=== PATIENT | female | born 1940 | race Two or more races ===

== ENCOUNTER 2023-07-08 18:38 | Inpatient (IN) | payer MEDICARE, OTHER ==
[~2023-07-08] VITALS: Ht 167.6 cm; Wt 62.0 kg
[2023-07-08] MEDS ORDERED: SODIUM CHLORIDE 0.9% 1,000 ML IV ONE ×2 (19:15)
[2023-07-08 19:38] VITALS: PULSE 62; RESP 15; O2SAT 100
[2023-07-08 19:46] LABS: Basophils # (auto) 0 10 ^3/uL (0-0.2); Red Cell Distribution Width 14.8 % (11.8-14.3)
[2023-07-08 19:48] LABS: Basophils % (auto) 0.6 % (0.0-2.0); Eosinophils # (auto) 0 10 ^3/uL (0-0.8); Eosinophils % (auto) 0.5 % (0.0-7.0); Hematocrit 19.5 % (36.0-46.0); Lymphocytes # (auto) 2.1 10 ^3/uL (0.4-5.4); Mean Corpuscular Hemoglobin 32.2 pg (28.0-32.0); Mean Corpuscular Volume 94.9 fL (80.0-100.0); Monocytes # (auto) 0.4 10 ^3/uL (0-1.3); Monocytes % (auto) 5.9 % (0.0-12.0); Neutrophils # (auto) 4.9 10 ^3/uL (1.6-8.6); Nucleated Red Blood Cells % 0.1 %; Red Blood Cells 2.06 10^6/uL (4.0-5.20); White Blood Cell 7.5 10^3/uL (4.4-10.8)
[2023-07-08 20:03] LABS: Alanine Aminotransferase 18 U/L (7-40); Albumin 3.8 g/dL (3.2-4.8); Alkaline Phosphatase 51 U/L (46-116); Anion Gap 11 (5-15); Aspartate Aminotransferase 10 U/L (13-40); BUN/Creatinine Ratio 17.1 (10.0-20.0); Blood Urea Nitrogen 24 mg/dL (9-23); Calcium 9.3 mg/dL (8.7-10.4); Carbon Dioxide 24 mmol/L (20-30); Chloride 104 mmol/L (98-107); Glucose 232 mg/dL (74-106); Lipase 58 U/L (12-53); Potassium 4.2 mmol/L (3.5-5.1); Sodium 139 mmol/L (136-145)
[2023-07-08 20:04] LABS: Bilirubin, Total 0.4 mg/dL (0.2-1.0); Total Protein 6.1 g/dL (5.7-8.2)
[2023-07-08 20:05] LABS: Hemoglobin 6.6 g/dL (12.2-16.2)
[2023-07-08 20:46] LABS: % Iron Saturation 18.5 % (15-50)
[2023-07-08 20:54] LABS: Ferritin 34.3 ng/mL (10-291)
[2023-07-08 20:58] LABS: INR 1.18 (0.9-1.15); Prothrombin Time 12.3 sec (9.3-11.8)
[2023-07-09] VITALS (20 sets, daily range): BP systolic 90–172; BP diastolic 39–83; PULSE 65–89; RESP 14–20; TEMP 97–98.9; O2SAT 92–100
[2023-07-09] MEDS ORDERED: HYDROcodone-ACET 5/325MG TAB PO PRN (01:00)
[2023-07-09] MEDS ORDERED: ONDANSETRON HCL 4 MG/2 ML VIAL IV PRN (01:00)
[2023-07-09] MEDS ORDERED: DEXTROSE (50%) 50ML SYRG IV PRN (01:00)
[2023-07-09] MEDS ORDERED: ACETAMINOPHEN 325 MG TAB PO PRN (01:00)
[2023-07-09] MEDS ORDERED: DOCUSATE SOD 100 MG CAP PO PRN (01:00)
[2023-07-09] MEDS ORDERED: MORPHINE SULFATE INJ 2 MG/ml SYRG IV PRN (02:00)
[2023-07-09] MEDS ORDERED: NITROGLYCERIN 0.4 MG SL TAB SL PRN (02:00)
[2023-07-09] MEDS: SODIUM CHLOR 0.9% PF (SALINE LOCK) 10ML VIAL/SYR IV SCH ×3 (05:43→22:09)
[2023-07-09] MEDS: ACCU-CHEK COMFORT CURVE STRIP VI SCH ×4 (06:34→22:09)
[2023-07-09] MEDS: InsuLIN REG 1unit/0.01ml Soln (100units/ml) SC SCH ×4 (06:35→22:00)
[2023-07-09] MEDS ORDERED: ASPirin 81 mg TAB PO SCH (10:00)
[2023-07-09] MEDS: FAMOTIDINE (10MG/ML) 2ML VL IV SCH ×2 (11:05→22:15)
[2023-07-09] MEDS ORDERED: FAMO-12 PO (11:06)
[2023-07-09] MEDS ORDERED: CLOP75TA70 PO (11:06)
[2023-07-09] MEDS ORDERED: APIX5TAB PO (11:06)
[2023-07-09] MEDS ORDERED: CILO100T PO (11:06)
[2023-07-09] MEDS ORDERED: CHOL200021 PO (11:06)
[2023-07-09] MEDS ORDERED: QUET100T47 PO (11:06)
[2023-07-09] MEDS ORDERED: RIVA1DIS TD (11:06)
[2023-07-09] MEDS ORDERED: ASPI-543 PO (11:06)
[2023-07-09] MEDS ORDERED: CAND4TAB OR (11:06)
[2023-07-09] MEDS ORDERED: LATA0.008 RIGHTEYE (11:06)
[2023-07-09] MEDS ORDERED: METO25TA93 PO (11:06)
[2023-07-09] MEDS ORDERED: ESCI1TAB36 PO (11:06)
[2023-07-09] MEDS ORDERED: ATOR20TA50 PO (11:06)
[2023-07-09] MEDS ORDERED: MEMA1TAB3 PO (11:06)
[2023-07-09 13:44] LABS: Basophils # (auto) 0 10 ^3/uL (0-0.2); Basophils % (auto) 0.3 % (0.0-2.0); Eosinophils # (auto) 0 10 ^3/uL (0-0.8); Eosinophils % (auto) 0.4 % (0.0-7.0); Hematocrit 31.8 % (36.0-46.0); Hemoglobin 10.5 g/dL (12.2-16.2); Lymphocytes # (auto) 1.7 10 ^3/uL (0.4-5.4); Lymphocytes % (auto) 15.5 % (10.0-50.0); Mean Corpuscular Hemoglobin 30.5 pg (28.0-32.0); Mean Corpuscular Hgb Conc. 33.1 g/dL (32.0-36.0); Mean Corpuscular Volume 92.2 fL (80.0-100.0); Monocytes # (auto) 0.6 10 ^3/uL (0-1.3); Monocytes % (auto) 5.4 % (0.0-12.0); Neutrophils # (auto) 8.3 10 ^3/uL (1.6-8.6); Neutrophils % (auto) 78.4 % (37.0-80.0); Nucleated Red Blood Cells % 0.1 %; Red Blood Cells 3.45 10^6/uL (4.0-5.20); Red Cell Distribution Width 15.4 % (11.8-14.3); White Blood Cell 10.6 10^3/uL (4.4-10.8)
[2023-07-09 13:52] LABS: Alanine Aminotransferase 14 U/L (7-40); Albumin 3.8 g/dL (3.2-4.8); Alkaline Phosphatase 53 U/L (46-116); Anion Gap 6 (5-15); Aspartate Aminotransferase 10 U/L (13-40); BUN/Creatinine Ratio 13.3 (10.0-20.0); Blood Urea Nitrogen 14 mg/dL (9-23); Calcium 9.2 mg/dL (8.7-10.4); Carbon Dioxide 26 mmol/L (20-30); Chloride 107 mmol/L (98-107); Glucose 143 mg/dL (74-106); Potassium 4.4 mmol/L (3.5-5.1); Sodium 139 mmol/L (136-145)
[2023-07-09 13:53] LABS: Bilirubin, Total 0.7 mg/dL (0.2-1.0); Total Protein 6.3 g/dL (5.7-8.2)
[2023-07-10] MEDS: SODIUM CHLOR 0.9% PF (SALINE LOCK) 10ML VIAL/SYR IV SCH ×3 (06:24→21:50)
[2023-07-10] MEDS: ACCU-CHEK COMFORT CURVE STRIP VI SCH ×4 (06:25→21:48)
[2023-07-10] MEDS: InsuLIN REG 1unit/0.01ml Soln (100units/ml) SC SCH ×4 (06:25→21:48)
[2023-07-10 08:00] VITALS: PULSE 77; RESP 18; O2SAT 95
[2023-07-10 09:00] VITALS: BP 132/63; PULSE 77; RESP 18; TEMP 98; O2SAT 95
[2023-07-10] MEDS ORDERED: OMNIPAQUE 12mg/ml 500ml ORAL SOLUTION PO ONE (09:55)
[2023-07-10] MEDS: FAMOTIDINE (10MG/ML) 2ML VL IV SCH ×2 (10:06→21:50)
[2023-07-10 10:46] LABS: Basophils # (auto) 0.1 10 ^3/uL (0-0.2); Basophils % (auto) 0.6 % (0.0-2.0); Eosinophils # (auto) 0.1 10 ^3/uL (0-0.8); Eosinophils % (auto) 1.1 % (0.0-7.0); Hematocrit 35.1 % (36.0-46.0); Hemoglobin 11.6 g/dL (12.2-16.2); Lymphocytes # (auto) 1.9 10 ^3/uL (0.4-5.4); Lymphocytes % (auto) 20.7 % (10.0-50.0); Mean Corpuscular Hemoglobin 30.7 pg (28.0-32.0); Mean Corpuscular Hgb Conc. 33.1 g/dL (32.0-36.0); Mean Corpuscular Volume 92.8 fL (80.0-100.0); Monocytes # (auto) 0.9 10 ^3/uL (0-1.3); Monocytes % (auto) 9.9 % (0.0-12.0); Neutrophils # (auto) 6.2 10 ^3/uL (1.6-8.6); Neutrophils % (auto) 67.7 % (37.0-80.0); Nucleated Red Blood Cells % 0.2 %; Red Blood Cells 3.78 10^6/uL (4.0-5.20); Red Cell Distribution Width 15.5 % (11.8-14.3); White Blood Cell 9.1 10^3/uL (4.4-10.8)
[2023-07-10 11:44] LABS: Alanine Aminotransferase 18 U/L (7-40); Albumin 4.2 g/dL (3.2-4.8); Alkaline Phosphatase 63 U/L (46-116); Anion Gap 5 (5-15); Aspartate Aminotransferase 13 U/L (13-40); BUN/Creatinine Ratio 16.2 (10.0-20.0); Blood Urea Nitrogen 16 mg/dL (9-23); Calcium 9.5 mg/dL (8.7-10.4); Carbon Dioxide 28 mmol/L (20-30); Chloride 106 mmol/L (98-107); Glucose 105 mg/dL (74-106); Potassium 4.6 mmol/L (3.5-5.1); Sodium 139 mmol/L (136-145)
[2023-07-10 11:45] LABS: Bilirubin, Total 0.8 mg/dL (0.2-1.0); Total Protein 6.8 g/dL (5.7-8.2)
[2023-07-10] MEDS ORDERED: IOHEXOL 300 MG/ML 100ML BOTTLE IJ ONE (12:32)
[2023-07-10 13:21] VITALS: BP 96/74; PULSE 73; RESP 20; TEMP 97.8; O2SAT 95
[2023-07-10 17:00] VITALS: BP 147/69; PULSE 80; RESP 18; TEMP 98.6; O2SAT 95
[2023-07-10] MEDS: LATANOPROST 0.005 % OPTH(EYE) SOL 2.5ML RIGHTEYE SCH (17:47)
[2023-07-10] MEDS: QUEtiapine FUMARATE 100 MG TAB PO SCH (21:49)
[2023-07-10] MEDS: CILOSTAZOL 100 MG TAB PO SCH (21:49)
[2023-07-10] MEDS: MEMANTINE HCL 5 MG TAB PO SCH (21:49)
[2023-07-11 05:10] LABS: Basophils # (auto) 0.1 10 ^3/uL (0-0.2); Basophils % (auto) 0.8 % (0.0-2.0); Eosinophils # (auto) 0.1 10 ^3/uL (0-0.8); Eosinophils % (auto) 0.9 % (0.0-7.0); Hematocrit 30.5 % (36.0-46.0); Hemoglobin 10.3 g/dL (12.2-16.2); Lymphocytes # (auto) 1.3 10 ^3/uL (0.4-5.4); Lymphocytes % (auto) 19.7 % (10.0-50.0); Mean Corpuscular Hemoglobin 31.1 pg (28.0-32.0); Mean Corpuscular Hgb Conc. 33.8 g/dL (32.0-36.0); Monocytes # (auto) 0.7 10 ^3/uL (0-1.3); Monocytes % (auto) 10.6 % (0.0-12.0); Neutrophils # (auto) 4.7 10 ^3/uL (1.6-8.6); Red Blood Cells 3.31 10^6/uL (4.0-5.20); Red Cell Distribution Width 15.5 % (11.8-14.3); White Blood Cell 6.8 10^3/uL (4.4-10.8)
[2023-07-11] MEDS: InsuLIN REG 1unit/0.01ml Soln (100units/ml) SC SCH ×4 (06:11→22:00)
[2023-07-11] MEDS: ACCU-CHEK COMFORT CURVE STRIP VI SCH ×4 (06:12→22:00)
[2023-07-11] MEDS: SODIUM CHLOR 0.9% PF (SALINE LOCK) 10ML VIAL/SYR IV SCH ×3 (06:12→22:57)
[2023-07-11 08:00] VITALS: PULSE 77; RESP 18
[2023-07-11 09:00] VITALS: BP 144/57; PULSE 87; RESP 17; O2SAT 93
[2023-07-11] MEDS ORDERED: PATIENTS OWN MEDICATION (Metoprolol Succinate (Metoprolol Succinate Er) 12.5 MG) PO SCH (10:00)
[2023-07-11] MEDS: RIVASTIGMINE 4.6 MG TD SCH (10:00)
[2023-07-11] MEDS ORDERED: PATIENTS OWN MEDICATION (Escitalopram Oxalate 1 TAB) PO SCH (10:00)
[2023-07-11] MEDS ORDERED: PATIENTS OWN MEDICATION (Cholecalciferol (D3) 2,000 UNIT) PO SCH (10:00)
[2023-07-11] MEDS: CANDESARTAN CILEXETIL 4 MG PO SCH (10:00)
[2023-07-11] MEDS: MEMANTINE HCL 5 MG TAB PO SCH ×2 (10:08→22:54)
[2023-07-11] MEDS: CHOLECALCIFEROL (VITD3) 2,000 UNIT CAP/TAB PO SCH (10:08)
[2023-07-11] MEDS: FAMOTIDINE (10MG/ML) 2ML VL IV SCH ×2 (10:08→22:56)
[2023-07-11] MEDS: ATORVASTATIN 20 MG TAB PO SCH (10:09)
[2023-07-11] MEDS: CILOSTAZOL 100 MG TAB PO SCH ×2 (10:09→22:00)
[2023-07-11 11:57] LABS: Folate (Folic Acid) 16.38 ng/mL (>5.38)
[2023-07-11 13:00] VITALS: BP 143/69; PULSE 97; RESP 20; O2SAT 97
[2023-07-11 17:00] VITALS: BP 138/68; PULSE 107; RESP 18; O2SAT 96
[2023-07-11] MEDS: LATANOPROST 0.005 % OPTH(EYE) SOL 2.5ML RIGHTEYE SCH (17:56)
[2023-07-11 22:00] VITALS: BP 136/83; PULSE 105; RESP 18; TEMP 98; O2SAT 96
[2023-07-11] MEDS: QUEtiapine FUMARATE 100 MG TAB PO SCH (22:54)
[2023-07-12 05:00] VITALS: BP 130/70; PULSE 101; RESP 18; TEMP 97.9; O2SAT 97
[2023-07-12] MEDS: InsuLIN REG 1unit/0.01ml Soln (100units/ml) SC SCH ×3 (06:41→18:22)
[2023-07-12] MEDS: SODIUM CHLOR 0.9% PF (SALINE LOCK) 10ML VIAL/SYR IV SCH ×2 (06:41→13:59)
[2023-07-12] MEDS: ACCU-CHEK COMFORT CURVE STRIP VI SCH ×3 (06:42→18:21)
[2023-07-12 06:55] LABS: Basophils # (auto) 0.1 10 ^3/uL (0-0.2); Basophils % (auto) 0.9 % (0.0-2.0); Eosinophils # (auto) 0 10 ^3/uL (0-0.8); Eosinophils % (auto) 0.8 % (0.0-7.0); Hematocrit 28.9 % (36.0-46.0); Hemoglobin 9.7 g/dL (12.2-16.2); Lymphocytes # (auto) 1.2 10 ^3/uL (0.4-5.4); Lymphocytes % (auto) 19.1 % (10.0-50.0); Mean Corpuscular Hemoglobin 30.7 pg (28.0-32.0); Mean Corpuscular Hgb Conc. 33.7 g/dL (32.0-36.0); Mean Corpuscular Volume 90.9 fL (80.0-100.0); Monocytes # (auto) 0.8 10 ^3/uL (0-1.3); Monocytes % (auto) 12.4 % (0.0-12.0); Neutrophils # (auto) 4.3 10 ^3/uL (1.6-8.6); Neutrophils % (auto) 66.8 % (37.0-80.0); Nucleated Red Blood Cells % 0.2 %; Red Blood Cells 3.17 10^6/uL (4.0-5.20); Red Cell Distribution Width 15.6 % (11.8-14.3); White Blood Cell 6.5 10^3/uL (4.4-10.8)
[2023-07-12 08:00] VITALS: PULSE 77; RESP 18; O2SAT 92
[2023-07-12] MEDS: ATORVASTATIN 20 MG TAB PO SCH (09:44)
[2023-07-12] MEDS: MEMANTINE HCL 5 MG TAB PO SCH (09:44)
[2023-07-12] MEDS: CHOLECALCIFEROL (VITD3) 2,000 UNIT CAP/TAB PO SCH (09:44)
[2023-07-12] MEDS: METOPROLOL TARTRATE 25 MG TAB PO SCH ×2 (09:44→10:00)
[2023-07-12] MEDS: FAMOTIDINE (10MG/ML) 2ML VL IV SCH (09:44)
[2023-07-12] MEDS: CANDESARTAN CILEXETIL 4 MG PO SCH (09:46)
[2023-07-12] MEDS: RIVASTIGMINE 4.6 MG TD SCH (09:50)
[2023-07-12] MEDS: CILOSTAZOL 100 MG TAB PO SCH (10:00)
[2023-07-12] MEDS ORDERED: CITALOPRAM HYDROBR 20 MG TAB PO SCH (10:00)
[2023-07-12 16:17] LABS: COVID19 ANTIGEN SOFIA FIA NEGATIVE (NEGATIVE)
[2023-07-12 16:22] VITALS: BP 127/66; PULSE 90; RESP 18; TEMP 98.3; O2SAT 94
[2023-07-12] MEDS: LATANOPROST 0.005 % OPTH(EYE) SOL 2.5ML RIGHTEYE SCH (18:00)
[2023-07-13] MEDS ORDERED: RIVASTIGMINE 4.6 MG TD SCH (10:00)
== END 2023-07-12 18:38 | DRG 811 ==
LOC: ER 18:38 → EDBD 18:38 → TELE 07-09 01:54 → TELE-WESTW 07-09 08:43
PROVIDERS: ADMIT Nurse Practitioner Family; ATTEND Family Medicine
PROC: 30233N1 Transfusion of Nonautologous Red Blood Cells into Peripheral Vein, Percutaneous Approach (ICD-10-PCS; principal; 2023-07-09)
DX: D64.9 Anemia, unspecified (principal); G93.41 Metabolic encephalopathy; K92.2 Gastrointestinal hemorrhage, unspecified; N17.9 Acute kidney failure, unspecified; E11.22 Type 2 diabetes mellitus with diabetic chronic kidney disease; N18.9 Chronic kidney disease, unspecified; E11.65 Type 2 diabetes mellitus with hyperglycemia; Z20.822 Contact with and (suspected) exposure to COVID-19; I12.9 Hypertensive chronic kidney disease with stage 1 through stage 4 chronic kidney disease, or unspecified chronic kidney disease; E11.51 Type 2 diabetes mellitus with diabetic peripheral angiopathy without gangrene; E78.5 Hyperlipidemia, unspecified; R55 Syncope and collapse; F03.90 Unspecified dementia, unspecified severity, without behavioral disturbance, psychotic disturbance, mood disturbance, and anxiety; I25.10 Atherosclerotic heart disease of native coronary artery without angina pectoris; K21.9 Gastro-esophageal reflux disease without esophagitis; Z86.718 Personal history of other venous thrombosis and embolism; Z87.891 Personal history of nicotine dependence; Z88.0 Allergy status to penicillin; Z79.01 Long term (current) use of anticoagulants
CPT/HCPCS: 36415; 70450; 71045; 74176; 80053; 82728; 82746; 82962; 83540; 83550; 83690; 83735; 83880; 84484; 85025; 85045; 85384; 85610; 86850; 86900; 86901; 86920; 87081; 87426; 93005; 93925; 93970; 97163; G0378; J1815; J3490

== ENCOUNTER 2023-11-29 12:14 | Inpatient (IN) | payer BC, MEDICARE ==
[~2023-11-29] VITALS: Ht 157.5 cm; Wt 69.5 kg
[~2023-11-29 12:14] MED LIST: APIX5TAB PO; ASPI-543 PO; ATOR20TA50 PO; CAND4TAB OR; CHOL200021 PO; CILO100T PO; CLOP75TA70 PO; ESCI1TAB36 PO; FAMO-12 PO; LATA0.008 RIGHTEYE; MEMA1TAB3 PO; METO25TA93 PO; QUET100T47 PO; RIVA1DIS TD
[2023-11-29 12:39] VITALS: BP 179/59; PULSE 77; RESP 19; O2SAT 94
[2023-11-29 13:04] LABS: Basophils # (auto) 0 10 ^3/uL (0-0.2); Basophils % (auto) 0.7 % (0.0-2.0); Eosinophils # (auto) 0.1 10 ^3/uL (0-0.8); Monocytes # (auto) 0.5 10 ^3/uL (0-1.3); Neutrophils # (auto) 2.2 10 ^3/uL (1.6-8.6)
[2023-11-29 13:06] LABS: Eosinophils % (auto) 1.8 % (0.0-7.0); Hematocrit 32.6 % (36.0-46.0); Hemoglobin 10.2 g/dL (12.2-16.2); Lymphocytes # (auto) 1.5 10 ^3/uL (0.4-5.4); Lymphocytes % (auto) 34.4 % (10.0-50.0); Mean Corpuscular Hemoglobin 25.7 pg (28.0-32.0); Mean Corpuscular Hgb Conc. 31.2 g/dL (32.0-36.0); Mean Corpuscular Volume 82.3 fL (80.0-100.0); Monocytes % (auto) 11.8 % (0.0-12.0); Neutrophils % (auto) 51.3 % (37.0-80.0); Nucleated Red Blood Cells % 0.1 %; Red Blood Cells 3.96 10^6/uL (4.0-5.20); White Blood Cell 4.3 10^3/uL (4.4-10.8)
[2023-11-29 13:21] LABS: Alanine Aminotransferase 13 U/L (7-40); Albumin 4.2 g/dL (3.2-4.8); Alkaline Phosphatase 72 U/L (46-116); Anion Gap 5 (5-15); Aspartate Aminotransferase 19 U/L (13-40); BUN/Creatinine Ratio 8.1 (10.0-20.0); Blood Urea Nitrogen 10 mg/dL (9-23); Carbon Dioxide 28 mmol/L (20-30); Chloride 108 mmol/L (98-107); Glucose 121 mg/dL (74-106); Potassium 4.2 mmol/L (3.5-5.1); Sodium 141 mmol/L (136-145)
[2023-11-29 13:22] LABS: Bilirubin, Total 0.6 mg/dL (0.2-1.0); Total Protein 7.1 g/dL (5.7-8.2)
[2023-11-29] MEDS ORDERED: NITR-87 PO (13:33)
[2023-11-29 15:50] LABS: Urine Bacteria NONE SEEN /hpf (None Seen); Urine Blood Negative /uL (Negative); Urine Clarity Clear (Clear); Urine Color Colorless (Yellow); Urine Protein, UAD Negative (Negative); Urine Specific Gravity 1.013 (1.001-1.035); Urine Urobilinogen Normal (Negative); Urine WBC 1 /hpf (0 - 5)
[2023-11-29] MEDS ORDERED: SODIUM CHLORIDE 0.9% 1,000 ML IV SCH (19:00)
[2023-11-29] MEDS ORDERED: DEXTROSE (50%) 50ML SYRG IV PRN (19:00)
[2023-11-29] MEDS ORDERED: DOCUSATE SOD 100 MG CAP PO PRN (19:00)
[2023-11-29] MEDS ORDERED: ONDANSETRON HCL 4 MG/2 ML VIAL IV PRN (19:00)
[2023-11-29] MEDS ORDERED: MORPHINE SULFATE INJ 2 MG/ml SYRG IV PRN (19:00)
[2023-11-29] MEDS ORDERED: InsuLIN REG 1unit/0.01ml Soln (100units/ml) SC SCH (22:00)
[2023-11-29] MEDS ORDERED: CILOSTAZOL 100 MG TAB PO SCH (22:00)
[2023-11-29] MEDS ORDERED: ACCU-CHEK COMFORT CURVE STRIP VI SCH (22:00)
[2023-11-29] MEDS ORDERED: APIXABAN 5 MG TAB PO SCH (22:00)
[2023-11-29] MEDS ORDERED: QUEtiapine FUMARATE 100 MG TAB PO SCH (22:00)
[2023-11-29] MEDS ORDERED: MEMANTINE HCL 5 MG TAB PO SCH (22:00)
[2023-11-29 22:07] LABS: Creatinine, Urine 71.69 mg/dL (30.0-125.0)
[2023-11-30] MEDS ORDERED: RIVASTIGMINE 4.6 MG TD SCH (10:00)
[2023-11-30] MEDS ORDERED: CANDESARTAN CILEXETIL 4 MG OR SCH (10:00)
[2023-11-30] MEDS ORDERED: PATIENTS OWN MEDICATION (Metoprolol Succinate (Metoprolol Succinate Er) 12.5 MG) PO SCH (10:00)
[2023-11-30] MEDS ORDERED: PATIENTS OWN MEDICATION (Cholecalciferol (D3) 2,000 UNIT) PO SCH (10:00)
[2023-11-30] MEDS ORDERED: FAMOTIDINE 20 MG TAB PO SCH (10:00)
[2023-11-30] MEDS ORDERED: ATORVASTATIN 20 MG TAB PO SCH (10:00)
[2023-11-30] MEDS ORDERED: PATIENTS OWN MEDICATION (Escitalopram Oxalate 1 TAB) PO SCH (10:00)
[2023-11-30] MEDS ORDERED: ASPirin-EC 81 mg tab PO SCH (10:00)
[2023-11-30] MEDS ORDERED: CLOPIDOGREL BISULFATE 75 MG TAB PO SCH (10:00)
[2023-11-30] MEDS ORDERED: LATANOPROST 0.005 % OPTH(EYE) SOL 2.5ML RIGHTEYE SCH (18:00)
== END 2023-11-29 19:30 | disposition left against medical advice (07) | DRG 638 ==
LOC: ER 12:14 → OVERFLOW 18:50
PROVIDERS: ADMIT Nurse Practitioner Family; ATTEND Nurse Practitioner Family
DX: E11.65 Type 2 diabetes mellitus with hyperglycemia (principal); N17.9 Acute kidney failure, unspecified; N39.0 Urinary tract infection, site not specified; D72.819 Decreased white blood cell count, unspecified; D64.9 Anemia, unspecified; F03.90 Unspecified dementia, unspecified severity, without behavioral disturbance, psychotic disturbance, mood disturbance, and anxiety; K21.9 Gastro-esophageal reflux disease without esophagitis; I12.9 Hypertensive chronic kidney disease with stage 1 through stage 4 chronic kidney disease, or unspecified chronic kidney disease; E11.22 Type 2 diabetes mellitus with diabetic chronic kidney disease; N18.9 Chronic kidney disease, unspecified; I25.10 Atherosclerotic heart disease of native coronary artery without angina pectoris; Z53.29 Procedure and treatment not carried out because of patient's decision for other reasons; Z86.718 Personal history of other venous thrombosis and embolism; Z88.0 Allergy status to penicillin; Z88.1 Allergy status to other antibiotic agents
CPT/HCPCS: 36415; 80053; 81001; 82010; 82570; 84300; 85025; G0378